=== PATIENT | male | born 1975 | race Caucasian/White ===

== ENCOUNTER → 2022-08-31 | Outpatient (CLI) | payer OTHER ==
[2022-08-31 10:31] VITALS: BP 133/94
--- NOTE | 2022-08-31 13:16 | Cardiology Stress Test Report ---
Stress Test Report Date of Procedure/Referring: Date of Procedure: Aug 31, 2022 PCP No,Local Physician Admitting Physician Admitting Physician: Attending Physician: Bing Davis MD Indications: CP Baseline Heart Rate: 54 Baseline Blood Pressure: Blood Pressure Systolic: 133 Blood Pressure Diastolic: 94 Baseline EKG: Baseline EKG: NSR Summary/Conclusion: Summary: In summary, the patient started exercising with a baseline heart rate, blood pressure and EKG mentioned above Patient was able to exercise for a total of 10 minutes on Alphonse protocol, METs 11.7 Maximum heart rate 160 Maximum blood pressure 176/105 Stress EKG, Minimal nondiagnostic changes Recovery EKG , Return to baseline Conclusion: 1. Good exercise tolerance for a total of 10 minutes on Alphonse protocol, 11.7 METs, achieving 91 percent of maximum expected heart rate 2. Minimal nondiagnostic EKG changes with exercise returned to baseline during recovery 3. No arrhythmia was noted Copy Copies To 1: [facility] [place] B[place] DAVIS MD Aug 31, 2022 13:16
== END ==
LOC: CARD 09:49
PROVIDERS: ATTEND Internal Medicine Cardiovascular Disease
DX: R07.9 Chest pain, unspecified (principal)
CPT/HCPCS: 93017